=== PATIENT | male | born 1955 | race Asian ===

== ENCOUNTER 2020-01-26 23:42 | Inpatient (IN) | payer OTHER ==
[~2020-01-26] VITALS: Ht 162.6 cm; Wt 57.1 kg
[2020-01-26 23:56] LABS: BASOPHILS % (AUTO) 0.2 % (0.0-2.0); EOSINOPHILS % (AUTO) 0 % (1.0-6.0); HEMATOCRIT 38.3 % (41-53); HEMOGLOBIN 12.6 g/dL (13.5-17.5); LYMPHOCYTES # (AUTO) 1.4 K/uL (1.0-4.8); LYMPHOCYTES % (AUTO) 14.4 % (22.0-44.0); MEAN CORPUSCULAR HEMOGLOBIN 35.3 pg (26.0-34.0); MEAN CORPUSCULAR HGB CONC 32.8 G/dL (31.0-37.0); MEAN CORPUSCULAR VOLUME 107 fL (80-100); MONOCYTES # (AUTO) 0.4 K/uL (0.1-1.0); MONOCYTES % (AUTO) 3.7 % (2.0-9.0); NEUTROPHILS # (AUTO) 7.7 K/uL (1.8-7.7); NEUTROPHILS % (AUTO) 81.7 % (40.0-70.0); PLATELET COUNT (AUTO) 133 K/uL (150-450); RED BLOOD CELL COUNT(AUTO) 3.57 MIL/uL (4.50-5.90); RED CELL DISTRIBUTION WIDTH 18.3 % (11.5-14.5)
[2020-01-27 00:07] LABS: ANION GAP 10 mmol/L (8-16); CALCIUM, TOTAL 8.2 mg/dL (8.8-10.5); CARBON DIOXIDE 25 mmol/L (22-29); CHLORIDE 106 mmol/L (98-107); CREATININE 1.02 mg/dL (0.60-1.30); GLOMERULAR FILTR. RATE CALC > 60 mL/min (>60); GLUCOSE,RANDOM 254 mg/dL (70-110); POTASSIUM 4.1 mmol/L (3.5-5.1); SODIUM SERUM 141 mmol/L (136-145); UREA NITROGEN, BLOOD 22 mg/dL (7-18)
[2020-01-27 00:13] LABS: ALANINE AMINOTRANSFERASE 106 U/L (12-78); ALBUMIN 3.2 g/dL (3.4-5.0); ALKALINE PHOSPHATASE 148 U/L (46-116); ASPARTATE AMINOTRANSFERASE 43 U/L (15-37); BILIRUBIN,TOTAL 0.5 mg/dL (0.1-1.0); CREATINE KINASE, TOTAL ONLY 45 U/L (39-308); TOTAL PROTEIN, SERUM 6.7 g/dL (6.4-8.2)
[2020-01-27 00:21] LABS: LACTIC ACID 2.8 mmol/L (0.4-2.0)
[2020-01-27 00:22] LABS: INR 0.9 (0.9-1.1); PROTHROMBIN TIME 9.6 SEC (9.4-11.6)
[2020-01-27] MEDS ORDERED: SODIUM CHLORIDE 0.9% 2,200 ML IV ONE (00:30)
[2020-01-27] MEDS ORDERED: LevETIRAcetam 1,000 MG in DEXTROSE 5%-WATER 100 ML IV ONE (01:15)
[2020-01-27 01:49] LABS: APPEARANCE,URINE CLEAR (CLEAR); BILIRUBIN,URINE NEGATIVE (NEGATIVE); GLUCOSE, URINE (UA) 250 mg/dL (NEGATIVE); KETONES,URINE NEGATIVE (NEGATIVE); LEUKOCYTE ESTERASE ,URINE NEGATIVE (NEGATIVE); NITRATE,URINE NEGATIVE (NEGATIVE); OCCULT BLOOD,URINE NEGATIVE (NEGATIVE); PROTEIN,URINE SEE CONFIRM (NEGATIVE); UROBILINOGEN,URINE 0.2 mg/dL (<=1.0)
[2020-01-27 01:55] LABS: AMPHET/METH SCREEN,URINE NEGATIVE (NEGATIVE); BARBITURATE SCREEN, URINE NEGATIVE (NEGATIVE); BENZODIAZEPINES SCREEN,URINE NEGATIVE (NEGATIVE); CANNABINOID SCREEN,URINE NEGATIVE (NEGATIVE); COCAINE SCREEN,URINE NEGATIVE (NEGATIVE); METHADONE SCREEN, URINE NEGATIVE (NEGATIVE); OPIATE SCREEN,URINE POSITIVE (NEGATIVE)
[2020-01-27 01:58] LABS: PHENCYCLIDINE SCREEN,URINE NEGATIVE (NEGATIVE)
[2020-01-27 02:00] LABS: BACTERIA,URINE None Seen /HPF (None Seen); RBC,URINE 0-2 /HPF (0-2); SQUAMOUS EPITHELIAL CELL,UR Rare /LPF (None Seen); SULFOSALICYLIC ACID,URINE 1+ (Negative); WBC,URINE 0-2 /HPF (0-5)
[2020-01-27] MEDS ORDERED: CefTRIAXone 1 GM/DEXTROSE 50 ML IV ONE (02:15)
[2020-01-27] MEDS ORDERED: DOXYCYCLINE HYCLATE 100 MG in DEXTROSE 5%-WATER 100 ML IV ONE (02:15)
[2020-01-27] MEDS ORDERED: ONDANSETRON HCL 4 MG/2 ML VIAL IVP PRN ×2 (03:15→05:30)
[2020-01-27] MEDS ORDERED: 0.9% SODIUM CHLORIDE 10 ML SYRINGE IVP PRN ×2 (03:15→05:30)
[2020-01-27] MEDS ORDERED: ACETAMINOPHEN 325 MG TABLET PO PRN ×2 (03:15→05:30)
[2020-01-27 04:47] VITALS: BP 148/82
[2020-01-27] MEDS ORDERED: ZOLPIDEM TARTRATE 5 MG TABLET PO PRN (05:30)
[2020-01-27] MEDS ORDERED: MAGNESIUM SULFATE 4 GM/WATER 100 ML IV PRN (05:45)
[2020-01-27] MEDS ORDERED: POTASSIUM CHL 10 MEQ/WATER 50 ML IV PRN (05:45)
[2020-01-27] MEDS ORDERED: MAGNESIUM SULFATE 2 GM/WATER 50 ML IV PRN (05:45)
[2020-01-27] MEDS ORDERED: POTASSIUM CHLORIDE 20 MEQ ER TABLET PO PRN (05:45)
[2020-01-27] MEDS ORDERED: MAGNESIUM OXIDE 400 MG TABLET PO PRN (05:45)
[2020-01-27 07:33] VITALS: BP 131/75
[2020-01-27] MEDS: PANTOPRAZOLE SODIUM 40 MG DR TABLET PO SCH (08:35)
[2020-01-27] MEDS: DOCUSATE SODIUM 100 MG CAPSULE PO SCH ×2 (08:35→21:13)
[2020-01-27 11:30] VITALS: BP 149/109
[2020-01-27] MEDS ORDERED: GABA-531 PO (13:13)
[2020-01-27] MEDS ORDERED: DEXA0.5E6 PO (13:13)
[2020-01-27] MEDS ORDERED: TAMS-13 PO (13:13)
[2020-01-27] MEDS ORDERED: LOSA-30 PO (13:13)
[2020-01-27] MEDS ORDERED: AMLO10TA7 PO (13:13)
[2020-01-27] MEDS ORDERED: LEVE500T53 PO (13:13)
[2020-01-27] MEDS ORDERED: PRAV20TA4 PO (13:13)
[2020-01-27] MEDS ORDERED: DEXA2TAB PO (13:33)
[2020-01-27 15:40] VITALS: BP 150/88
[2020-01-27] MEDS: LevETIRAcetam 500 MG TABLET PO SCH ×2 (15:59→21:13)
[2020-01-27] MEDS: GABAPENTIN 300 MG CAPSULE PO PRN (16:37)
[2020-01-27 19:30] VITALS: BP 145/86
[2020-01-27] MEDS: PRAVASTATIN SODIUM 20 MG TABLET PO SCH (21:13)
[2020-01-27 23:09] VITALS: BP 141/80
[2020-01-28 04:12] VITALS: BP 147/78
[2020-01-28 07:47] VITALS: BP 143/80
[2020-01-28 07:51] LABS: BASOPHILS % (AUTO) 0.1 % (0.0-2.0); EOSINOPHILS % (AUTO) 0.4 % (1.0-6.0); HEMATOCRIT 35.7 % (41-53); HEMOGLOBIN 12.2 g/dL (13.5-17.5); LYMPHOCYTES # (AUTO) 1.7 K/uL (1.0-4.8); LYMPHOCYTES % (AUTO) 26.6 % (22.0-44.0); MEAN CORPUSCULAR HEMOGLOBIN 36.2 pg (26.0-34.0); MEAN CORPUSCULAR VOLUME 106 fL (80-100); MONOCYTES # (AUTO) 0.8 K/uL (0.1-1.0); MONOCYTES % (AUTO) 12.4 % (2.0-9.0); NEUTROPHILS # (AUTO) 3.9 K/uL (1.8-7.7); NEUTROPHILS % (AUTO) 60.5 % (40.0-70.0); PLATELET COUNT (AUTO) 100 K/uL (150-450); RED BLOOD CELL COUNT(AUTO) 3.36 MIL/uL (4.50-5.90); RED CELL DISTRIBUTION WIDTH 18.6 % (11.5-14.5)
[2020-01-28 08:05] LABS: ANION GAP 6 mmol/L (8-16); CALCIUM, TOTAL 8.1 mg/dL (8.8-10.5); CARBON DIOXIDE 28 mmol/L (22-29); CHLORIDE 107 mmol/L (98-107); CREATININE 0.67 mg/dL (0.60-1.30); GLOMERULAR FILTR. RATE CALC > 60 mL/min (>60); GLUCOSE,RANDOM 98 mg/dL (70-110); POTASSIUM 3.6 mmol/L (3.5-5.1); SODIUM SERUM 141 mmol/L (136-145); UREA NITROGEN, BLOOD 17 mg/dL (7-18)
[2020-01-28] MEDS: TAMSULOSIN HCL 0.4 MG CAPSULE PO SCH (08:46)
[2020-01-28] MEDS: DOCUSATE SODIUM 100 MG CAPSULE PO SCH ×2 (08:46→21:41)
[2020-01-28] MEDS: PANTOPRAZOLE SODIUM 40 MG DR TABLET PO SCH (08:46)
[2020-01-28] MEDS: LOSARTAN POTASSIUM 50 MG TABLET PO SCH (08:46)
[2020-01-28] MEDS: LevETIRAcetam 500 MG TABLET PO SCH ×3 (08:46→21:41)
[2020-01-28] MEDS: AmLODIPine BESYLATE 10 MG TABLET PO SCH (08:46)
[2020-01-28 11:30] VITALS: BP 113/76
[2020-01-28 16:00] VITALS: BP 132/72
[2020-01-28 19:39] VITALS: BP 113/69
[2020-01-28] MEDS: PRAVASTATIN SODIUM 20 MG TABLET PO SCH (21:41)
[2020-01-28 23:35] VITALS: BP 110/66
[2020-01-29 05:02] VITALS: BP 112/54
[2020-01-29 07:47] LABS: BASOPHILS % (AUTO) 0.4 % (0.0-2.0); EOSINOPHILS % (AUTO) 1.2 % (1.0-6.0); HEMOGLOBIN 12.6 g/dL (13.5-17.5); LYMPHOCYTES # (AUTO) 1.2 K/uL (1.0-4.8); LYMPHOCYTES % (AUTO) 23.3 % (22.0-44.0); MEAN CORPUSCULAR HEMOGLOBIN 35.7 pg (26.0-34.0); MEAN CORPUSCULAR VOLUME 105 fL (80-100); MONOCYTES # (AUTO) 0.6 K/uL (0.1-1.0); MONOCYTES % (AUTO) 11.2 % (2.0-9.0); NEUTROPHILS # (AUTO) 3.4 K/uL (1.8-7.7); NEUTROPHILS % (AUTO) 63.9 % (40.0-70.0); RED BLOOD CELL COUNT(AUTO) 3.52 MIL/uL (4.50-5.90); RED CELL DISTRIBUTION WIDTH 17.9 % (11.5-14.5)
[2020-01-29 08:00] VITALS: BP 139/82
[2020-01-29 08:00] LABS: ANION GAP 6 mmol/L (8-16); CALCIUM, TOTAL 8.7 mg/dL (8.8-10.5); CARBON DIOXIDE 27 mmol/L (22-29); CHLORIDE 106 mmol/L (98-107); CREATININE 0.75 mg/dL (0.60-1.30); GLOMERULAR FILTR. RATE CALC > 60 mL/min (>60); GLUCOSE,RANDOM 89 mg/dL (70-110); POTASSIUM 3.9 mmol/L (3.5-5.1); SODIUM SERUM 139 mmol/L (136-145); UREA NITROGEN, BLOOD 21 mg/dL (7-18)
[2020-01-29] MEDS ORDERED: DEXAMETHASONE 2 MG TABLET PO SCH (09:00)
[2020-01-29] MEDS: DOCUSATE SODIUM 100 MG CAPSULE PO SCH ×2 (09:27→20:52)
[2020-01-29] MEDS: LOSARTAN POTASSIUM 50 MG TABLET PO SCH (09:28)
[2020-01-29] MEDS: TAMSULOSIN HCL 0.4 MG CAPSULE PO SCH (09:28)
[2020-01-29] MEDS: AmLODIPine BESYLATE 10 MG TABLET PO SCH (09:29)
[2020-01-29] MEDS: PANTOPRAZOLE SODIUM 40 MG DR TABLET PO SCH (09:29)
[2020-01-29] MEDS: LevETIRAcetam 500 MG TABLET PO SCH ×3 (09:30→20:54)
[2020-01-29 10:02] LABS: PLATELET COUNT (AUTO) 96 K/uL (150-450)
[2020-01-29 11:53] VITALS: BP 116/74
[2020-01-29 17:09] VITALS: BP 118/68
[2020-01-29 19:55] VITALS: BP 121/67
[2020-01-29] MEDS: PRAVASTATIN SODIUM 20 MG TABLET PO SCH (20:52)
[2020-01-29 23:47] VITALS: BP 103/67
[2020-01-30 04:39] VITALS: BP 109/73
[2020-01-30 07:11] VITALS: BP 130/76
[2020-01-30 08:13] LABS: BASOPHILS % (AUTO) 0.2 % (0.0-2.0); EOSINOPHILS % (AUTO) 0.8 % (1.0-6.0); HEMATOCRIT 36.5 % (41-53); HEMOGLOBIN 12.3 g/dL (13.5-17.5); LYMPHOCYTES # (AUTO) 1.2 K/uL (1.0-4.8); LYMPHOCYTES % (AUTO) 18.3 % (22.0-44.0); MEAN CORPUSCULAR HEMOGLOBIN 35.8 pg (26.0-34.0); MEAN CORPUSCULAR HGB CONC 33.6 G/dL (31.0-37.0); MEAN CORPUSCULAR VOLUME 107 fL (80-100); MONOCYTES # (AUTO) 0.6 K/uL (0.1-1.0); MONOCYTES % (AUTO) 9.7 % (2.0-9.0); NEUTROPHILS # (AUTO) 4.7 K/uL (1.8-7.7); PLATELET COUNT (AUTO) 99 K/uL (150-450); RED BLOOD CELL COUNT(AUTO) 3.43 MIL/uL (4.50-5.90)
[2020-01-30 08:23] LABS: ANION GAP 9 mmol/L (8-16); CARBON DIOXIDE 26 mmol/L (22-29); CHLORIDE 103 mmol/L (98-107); CREATININE 0.88 mg/dL (0.60-1.30); GLOMERULAR FILTR. RATE CALC > 60 mL/min (>60); GLUCOSE,RANDOM 98 mg/dL (70-110); POTASSIUM 3.7 mmol/L (3.5-5.1); SODIUM SERUM 138 mmol/L (136-145); UREA NITROGEN, BLOOD 23 mg/dL (7-18)
[2020-01-30] MEDS ORDERED: GADOBUTROL 1 MMOL/ML 10 ML VIAL IVP ONE (08:28)
[2020-01-30] MEDS: LOSARTAN POTASSIUM 50 MG TABLET PO SCH (09:20)
[2020-01-30] MEDS: PANTOPRAZOLE SODIUM 40 MG DR TABLET PO SCH (09:20)
[2020-01-30] MEDS: LevETIRAcetam 500 MG TABLET PO SCH ×3 (09:20→19:57)
[2020-01-30] MEDS: DOCUSATE SODIUM 100 MG CAPSULE PO SCH ×2 (09:20→19:57)
[2020-01-30] MEDS: AmLODIPine BESYLATE 10 MG TABLET PO SCH (09:21)
[2020-01-30] MEDS: TAMSULOSIN HCL 0.4 MG CAPSULE PO SCH (09:21)
[2020-01-30 11:52] VITALS: BP 128/66
[2020-01-30 16:06] VITALS: BP 133/70
[2020-01-30] MEDS: DEXAMETHASONE 2 MG TABLET PO SCH (19:57)
[2020-01-30] MEDS: PRAVASTATIN SODIUM 20 MG TABLET PO SCH (19:57)
[2020-01-30 20:00] VITALS: BP 129/83
[2020-01-31 00:34] VITALS: BP 100/59
[2020-01-31 05:21] VITALS: BP 119/76
[2020-01-31 07:23] LABS: BASOPHILS % (AUTO) 0.5 % (0.0-2.0); EOSINOPHILS % (AUTO) 0.2 % (1.0-6.0); HEMATOCRIT 34.2 % (41-53); HEMOGLOBIN 11.8 g/dL (13.5-17.5); LYMPHOCYTES # (AUTO) 0.5 K/uL (1.0-4.8); LYMPHOCYTES % (AUTO) 9.3 % (22.0-44.0); MEAN CORPUSCULAR HEMOGLOBIN 36.6 pg (26.0-34.0); MEAN CORPUSCULAR HGB CONC 34.4 G/dL (31.0-37.0); MEAN CORPUSCULAR VOLUME 106 fL (80-100); MONOCYTES # (AUTO) 0.2 K/uL (0.1-1.0); MONOCYTES % (AUTO) 4.4 % (2.0-9.0); NEUTROPHILS # (AUTO) 4.3 K/uL (1.8-7.7); PLATELET COUNT (AUTO) 98 K/uL (150-450); RED BLOOD CELL COUNT(AUTO) 3.22 MIL/uL (4.50-5.90); RED CELL DISTRIBUTION WIDTH 17.9 % (11.5-14.5)
[2020-01-31 07:44] LABS: ANION GAP 7 mmol/L (8-16); CALCIUM, TOTAL 8.3 mg/dL (8.8-10.5); CARBON DIOXIDE 25 mmol/L (22-29); CHLORIDE 104 mmol/L (98-107); CREATININE 0.82 mg/dL (0.60-1.30); GLOMERULAR FILTR. RATE CALC > 60 mL/min (>60); GLUCOSE,RANDOM 139 mg/dL (70-110); POTASSIUM 4.4 mmol/L (3.5-5.1); SODIUM SERUM 136 mmol/L (136-145); UREA NITROGEN, BLOOD 26 mg/dL (7-18)
[2020-01-31 07:47] VITALS: BP 128/66
[2020-01-31 07:52] LABS: NEUTROPHILS % (AUTO) 85.6 % (40.0-70.0)
[2020-01-31] MEDS: DOCUSATE SODIUM 100 MG CAPSULE PO SCH (08:00)
[2020-01-31] MEDS: LevETIRAcetam 500 MG TABLET PO SCH (08:01)
[2020-01-31] MEDS: GABAPENTIN 300 MG CAPSULE PO PRN (08:02)
[2020-01-31] MEDS: DEXAMETHASONE 2 MG TABLET PO SCH (08:02)
[2020-01-31] MEDS: PANTOPRAZOLE SODIUM 40 MG DR TABLET PO SCH (08:02)
[2020-01-31] MEDS: TAMSULOSIN HCL 0.4 MG CAPSULE PO SCH (08:02)
[2020-01-31] MEDS: AmLODIPine BESYLATE 10 MG TABLET PO SCH (08:02)
[2020-01-31] MEDS: LOSARTAN POTASSIUM 50 MG TABLET PO SCH (08:05)
[2020-01-31 11:42] VITALS: BP 110/70
[2020-01-31] MEDS ORDERED: LEVE500T53 PO (14:35)
[2020-01-31] MEDS ORDERED: LOSA-88 PO (14:35)
[2020-01-31 15:10] VITALS: BP 112/72
== END 2020-01-31 16:55 | disposition home or self-care (01) | DRG 52 ==
LOC: EMS 23:43 → 5S 01-27 02:30
PROVIDERS: ADMIT Internal Medicine; ATTEND Internal Medicine
DX: G93.40 Encephalopathy, unspecified (principal); R56.9 Unspecified convulsions; J98.11 Atelectasis; E78.5 Hyperlipidemia, unspecified; Z79.899 Other long term (current) drug therapy; Z85.841 Personal history of malignant neoplasm of brain; Z86.73 Personal history of transient ischemic attack (TIA), and cerebral infarction without residual deficits; Z68.21 Body mass index [BMI] 21.0-21.9, adult
CPT/HCPCS: 70450; 70496; 70553; 83605; 83735; 87040; 92507; 92523; 93005; 97112; 97116; 97161; 97166; 97530; 97535; 99291; A9585; G0480; J0696; J0712; J3490; J7030; J7060; J8540